=== PATIENT | male | born 1955 | race Two or more races ===

== ENCOUNTER 2024-09-03 11:54 | Emergency (ER) | payer OTHER ==
[~2024-09-03] VITALS: Ht 170.2 cm; Wt 76.4 kg
[2024-09-03] MEDS: hydrALAZINE HCL 10 MG TAB PO ONE (12:15)
--- NOTE | 2024-09-03 12:36 | DVH ---
CLINICAL INFORMATION: 69 years old, Male; FLU-LIKE SYMPTOMS. TECHNIQUE: Frontal and lateral chest radiographs were obtained. COMPARISON: None FINDINGS: Lungs: Clear. Cardiac: Heart size is within normal limits. Pulmonary vasculature: Unremarkable Mediastinum/ronal: Dense atherosclerotic calcification of the aortic arch. Bones: No evidence of acute osseous abnormality. Other: No other significant finding. IMPRESSION: No evidence of acute disease in the chest.
[2024-09-03 12:41] VITALS: TEMP 98.3
[2024-09-03 13:03] VITALS: PULSE 84; RESP 16; O2SAT 95
--- NOTE | 2024-09-03 13:58 | ED.PDOC ---
History of Present Illness HPI Comments 69-year-old male presents with a chief complaint of flu-like symptoms x 2 weeks. Patient states that he is experiencing cough, congestion, fevers, and chills. Patient mentions that he went to his a doctor at a local clinic and the doctor "was worried about my lungs and told me to come get an xray". Patient states that he currently has no pain and is breathing fine on his own. Patient denies any chest pain, headache, nausea, vomiting, diarrhea, abdominal pain or urinary symptoms. No other symptoms or modifying factors present at this time. Chief Complaint: Flu like Time Seen by MD: 13:39 Reviewed Notes: Medications, Allergies Allergies: Coded Allergies: NO KNOWN ALLERGIES (Unverified , 09/03/24) Information Source: Patient Mode of Arrival: Ambulatory Severity: Moderate Timing: Weeks Duration: Since onset Prehospital treatment: None Past Medical History PAST MEDICAL HISTORY: Denies Surgical History: Denies all surgeries Family History Family History: Reviewed,noncontributory to illness Social History Smoker: Non-Smoker Alcohol: Denies ETOH Use Drugs: Denies Drug Use Lives In: Home Constitutional: reports: chills, fever; denies: diaphoresis, fatigue, malaise, sweats, weakness, others EENTM: reports: nose congestion; denies: blurred vision, double vision, ear bleeding, ear discharge, ear drainage, ear pain, ear ringing, eye pain, eye redness, hearing loss, mouth pain, mouth swelling, nasal discharge, nose bleeding, nose pain, photophobia, tearing, throat pain, throat swelling, voice changes, others Respiratory: reports: cough; denies: hemoptysis, orthopnea, SOB at rest, shortness of breath, SOB with excertion, stridor, wheezing, others Cardiovascular: denies: chest pain, dizzy spells, diaphoresis, Dyspnea on exertion, edema, irregular heart beat, left arm pain, lightheadedness, palpitations, PND, syncope, others Gastrointestinal: denies: abdomen distended, abdominal pain, blood streaked bowels, constipated, diarrhea, dysphagia, difficulty swallowing, hematemesis, melena, nausea, poor appetite, poor fluid intake, rectal bleeding, rectal pain, vomiting, others Genitourinary: denies: burning, dysuria, flank pain, frequency, hematuria, incontinence, penile discharge, penile sore, pain, testicle pain, testicle swelling, urgency, others Neurological: denies: dizziness, fainting, headache, left sided numbness, left sided weakness, numbness, paresthesia, pre-existing deficit, right sided numbness, right sided weakness, seizure, speech problems, tingling, tremors, weakness, others Musculoskeletal: denies: back pain, gout, joint pain, joint swelling, muscle pain, muscle stiffness, neck pain, others Integumetry: denies: bruises, change in color, change in hair/nails, dryness, laceration, lesions, lumps, rash, wounds, others Allergic/Immunocompromised: denies: Difficulty Healing, Frequent Infections, Hives, Itching, others Hematologic/Lymphatic: denies: anemia, blood clots, easy bleeding, easy bruising, swollen glands, others Endocrine: denies: excessive hunger, excessive sweating, excessive thirst, excessive urination, flushing, intolerance to cold, intolerance to heat, unexplained weight gain, unexplained weight loss, others Psychiatric: denies: anxiety, bipolar disorder, depression, hopeless, panic disorder, schizophrenia, sleepless, suicidal, others All Other Systems: Reviewed and Negative Physical Exam General Appearance: No Apparent Distress, Normal HEENT: Other (Unremarkable) Neck: Full Range of Motion, Normal Inspection Respiratory: Lungs Clear, No Accessory Muscle Use, No Respiratory Distress, Normal Breath Sounds Cardiovascular: No Edema, No JVD, Regular Rate/Rhythm Breast Exam: Deferred Gastrointestinal: Non Tender, Soft Genitalia: Deferred Pelvic: Deferred Rectal: Deferred Extremities: No calf tenderness, Normal inspection, Normal range of motion, Non-tender, No pedal edema Musculoskeletal : Apperance: Normal Neurologic: Alert (Oriented x4), Normal Affect, Normal Mood, Other (Ambulatory without difficulty. No gross focal deficit.) Cerebellar Function: NOT DONE Reflexes: NOT DONE Skin: Dry, Normal Color, Warm Lymphatic: NOT DONE Was a procedure done? Was a procedure done?: No Differential Dx Considerations may include: Bronchitis, pneumonia, CHF, COPD, among others X-Ray, Labs, Meds, VS Vital Signs Date Time Temp Pulse Resp B/P (MAP) Pulse Ox O2 Delivery O2 Flow Rate FiO2 09/03/24 17:35 83 18 145/83 (103) 96 09/03/24 14:35 86 18 128/87 (101) 96 09/03/24 13:03 84 16 95 Room Air* 0 21 09/03/24 12:51 83 20 149/81 (103) 96 09/03/24 12:41 98.3 82 20 137/83 (101) 96 98.3 09/03/24 12:15 149/81 09/03/24 12:00 98.7 86 18 175/110 (131) 97 09/03/24 12:00 18 97 Room Air 0 Lab Test 09/03/24 12:56 Range/Units Influenza Type A Antigen Negative Negative Influenza Type B Antigen Negative Negative SARS-CoV-2 Antigen (Rapid) Negative NEGATIVE PROCEDURE(s): CXR2 - CHEST TWO VIEWS ROUTINE REASON: FLU-LIKE SYMPTOMS ORDER NUMBER(s): [id number], ACCESSION NUMBER(s): [id number] CLINICAL INFORMATION: 69 years old, Male; FLU-LIKE SYMPTOMS. TECHNIQUE: Frontal and lateral chest radiographs were obtained. COMPARISON: None FINDINGS: Lungs: Clear. Cardiac: Heart size is within normal limits. Pulmonary vasculature: Unremarkable Mediastinum/ronal: Dense atherosclerotic calcification of the aortic arch. Bones: No evidence of acute osseous abnormality. Other: No other significant finding. IMPRESSION: No evidence of acute disease in the chest. X-Ray, Labs, Meds, VS Comment 69-year-old male with no significant past medical history, referred by his prima physician for chest x-ray due to cough, fever and congestion. Patient denies shortness of breath or chest pain. Vitals remarkable for BP 149/81. Oxygen saturation is normal on room air. Exam unremarkable Chest x-ray: IMPRESSION: No evidence of acute disease in the chest. Influenza and COVID negative No acute treatment was indicated in the ED, as the patient was not in respiratory distress and was not in pain. Chest was clear on my exam. Patient appears stable for discharge. Rx Mucinex, Augmentin Time of 1ST Reevaluation: 14:09 Reevaluation 1ST: Unchanged Patient Education/Counseling: Diagnosis, Treatment, Prognosis Family Education/Counseling: No Family Present Departure 1 Departure Time of Disposition: 18:24 Impression: Primary Impression: Acute cough Disposition: 01 HOME / SELF CARE / HOMELESS Condition: Stable Additional Instructions: Your chest x-ray was normal. Your tests for COVID and the flu were negative. I have prescribed antibiotics and cough medication to treat your symptoms. Follow-up with your primary doctor in 1-2 days. e-Prescriptions Acetaminophen (Tylenol Extra Strength) 500 Mg Tab 2 TAB PO Q6HP PRN, #30 TAB prn fever or pain Prov: SHAJI CRUZ MD 09/03/24 Guaifenesin (Mucinex) 600 Mg Tab 1 TAB PO BID PRN, #30 TAB prn cough congestion Prov: SHAJI CRUZ MD 09/03/24 Amoxicillin & Pot Clavulanate (AUGMENTIN TABLET) 875 Mg Tb 875 MG PO BID for 10 Days, #20 TAB Prov: SHAJI CRUZ MD 09/03/24 Discharged With: Self Critical Care Note Critical Care Time?: No Stability Stability form required: No Heart Score Heart Score: Heart Score Response (Comments) Value History N/A 0 EKG N/A 0 Age N/A 0 Risk Factors N/A 0 Troponin N/A 0 Total 0 I personally scribed for SHAJI CRUZ MD ([email or web address]) on 09/03/24 at 13:58. Electronically submitted by Abhishek Pearson ([email or web address]). SHAJI CRUZ MD Sep 03, 2024 13:58
[2024-09-03 15:09] LABS: COVID19 ANTIGEN SOFIA FIA NEGATIVE (NEGATIVE); Rapid Influenza A Negative (Negative); Rapid Influenza B Negative (Negative)
[2024-09-03 17:35] VITALS: BP 145/83; PULSE 83; RESP 18; O2SAT 96
[2024-09-03] MEDS ORDERED: ACET-1304 PO (18:30)
[2024-09-03] MEDS ORDERED: AUG875T PO (18:30)
[2024-09-03] MEDS ORDERED: GUAI600T78 PO (18:30)
== END 2024-09-03 19:17 | disposition home or self-care (01) ==
LOC: ER 11:54
DX: R05.1 Acute cough (principal); Z20.822 Contact with and (suspected) exposure to COVID-19
CPT/HCPCS: 36415; 71046; 87426; 87804